=== PATIENT | female | born 1990 | race Caucasian/White ===

== ENCOUNTER → 2023-07-22 07:46 | Outpatient (REF) | payer BC, SELFPAY ==
[2023-07-22 08:26] LABS: % Basophils 0.3 % (0-2); % Eosinophils 1.1 % (0-6); % Monocytes 9.1 % (1.7-9.3); % Neutrophils 62.5 % (42.2-75.2); Absolute Eosinophils 0.1 10^3/uL (0-0.7); Absolute Monocytes 0.7 10^3/uL (0.1-0.6); Absolute Neutrophils 4.7 10^3/uL (1.4-6.5); Hematocrit 42.2 % (37.0-47.0); Hemoglobin 14.3 g/dL (12.0-16.0); Mean Corp Hgb Conc. 33.9 g/dL (33.0-37.0); Mean Corpuscular Volume 91.5 fL (81.0-99.0); Mean Platelet Volume 11.1 fL (7.4-10.4); Platelet Count 294 10^3/uL (130-400); Red Blood Cell Count 4.61 10^6/uL (4.20-5.40); Red Cell Dist. Width 12.8 % (11.5-14.5); White Blood Cell Count 7.5 10^3/uL (4.8-10.8)
[2023-07-22 10:06] LABS: ALT (SGPT) 16 U/L (0-35); AST (SGOT) 22 U/L (14-36); Albumin 4.6 g/dl (3.5-5.0); Alkaline Phosphatase 95 U/L (38-126); Blood Urea Nitrogen 17 mg/dl (7-17); Calcium 9.7 mg/dl (8.4-10.2); Carbon Dioxide 26 mmol/L (22-30); Chloride 104 mmol/L (98-107); Glucose 76 mg/dl (70-99); Potassium 4.4 mmol/L (3.5-5.1); Sodium 137 mmol/L (135-145); Total Bilirubin 0.6 mg/dl (0.2-1.3); Total Protein 7.7 g/dl (6.3-8.2); Uric Acid 6.6 mg/dl (2.5-6.2); eGFR > 60.00
[2023-07-22 11:37] LABS: Free T4 1.04 ng/dl (0.78-2.19); Vitamin D, 25-OH*** 39.6 ng/mL (30-80)
[2023-07-22 11:54] LABS: TSH 1.13 uIU/ml (0.47-4.68)
[2023-07-22 12:09] LABS: Vitamin B12 365 pg/ml (239-931)
[2023-07-22 12:37] LABS: Glycohemoglobin (HgbA1c) 5.3 % (4.0-5.6)
[2023-07-24 04:19] LABS: Lipoprotein a (Lp a) 8 mg/dL (<=29)
[2023-07-26 02:09] LABS: HDL Cholesterol 75 mg/dL (40-59); HDL Particle Number, NMR 36.4 umol/L (>=33.0); HDL Particle Size, NMR 9.7 nm (>=8.9); LDL Cholesterol, Calculated 157 mg/dL (<=129); LDL Particle Number, NMR 1374 nmol/L (<=1135); LDL Particle Size, NMR 21.5 nm (>=20.7); Large HDL Particle Number, NMR 11.6 umol/L (>=4.2); Large VLDL Particle Number,NMR 1.6 nmol/L (<=2.7); Small LDL Particle Number, NMR 308 nmol/L (<=634); Total Cholesterol 245 mg/dL (<=199); Triglycerides 66 mg/dL (30-149); VLDL Particle Size, NMR 45.6 nm (<=46.7)
== END ==
LOC: OIDL 07:46
PROVIDERS: ATTENDING PHYSICIAN Internal Medicine
DX: E78.00 Pure hypercholesterolemia, unspecified (principal); L70.8 Other acne; K58.8 Other irritable bowel syndrome; G43.909 Migraine, unspecified, not intractable, without status migrainosus
CPT/HCPCS: 36415; 80053; 80061; 82306; 82607; 83036; 83695; 83704; 84439; 84443; 84550; 85025